=== PATIENT | male | born 1995 | race Hispanic/Latino ===

== ENCOUNTER 2016-11-09 04:28 | Emergency (ER) | payer OTHER ==
[2016-11-09 04:32] VITALS: BP 145/81
[2016-11-09] MEDS ORDERED: IBUPOTC PO (15:03)
[2016-11-10] MEDS ORDERED: NORCOTAB PO (11:23)
== END 2016-11-09 05:25 | disposition left against medical advice (07) ==
LOC: M ED 04:28
DX: R10.9 Unspecified abdominal pain (principal); Z53.29 Procedure and treatment not carried out because of patient's decision for other reasons

== ENCOUNTER 2016-11-09 11:29 | Inpatient (IN) | payer OTHER ==
[~2016-11-09] VITALS: Ht 167.6 cm; Wt 83.4 kg
[2016-11-09] MEDS ORDERED: NS 1,000 ML IV ONE (12:00)
[2016-11-09] MEDS ORDERED: ONDANSETRON 4MG/2ML VIAL (J2405) IV ONE (12:00)
[2016-11-09] MEDS ORDERED: PANTOPRAZOLE 40MG INJ (PROTONIX) (C9113) IV ONE (12:00)
[2016-11-09] MEDS: MORPHINE 2 MG/ML 1ML SYRINGE IV PRN ×2 (12:22→13:35)
[2016-11-09 12:28] LABS: BASO % 0.2 % (0.0-1.0); EOS # 0.3 K/mm3 (0.0-0.50); EOS % 1.3 % (0.0-3.0); LARGE UNSTAINED CELL # 0.1 K/mm3 (0.0-0.4); LARGE UNSTAINED CELL % 0.7 % (0.0-4.0); LYMPH # 1.9 K/mm3 (1.5-6.5); LYMPH % 8.9 % (24.0-44.0); MEAN CORPUSCULAR HEMOGLOBIN 29.4 pg (27.0-33.0); MEAN CORPUSCULAR HGB CONC 34.1 g/dl (32.0-36.5); MEAN CORPUSCULAR VOLUME 86.2 fl (80.0-96.0); MONO # 0.8 K/mm3 (0.0-0.8); NEUTROPHILS # 16.8 K/mm3 (1.8-7.7); NEUTROPHILS % 84.8 % (36.0-66.0); PLATELET COUNT, AUTOMATED 421 k/mm3 (150-450); RED CELL DISTRIBUTION WIDTH 12.4 % (11.5-14.5); WHITE BLOOD COUNT 19.8 K/mm3 (4.0-10.0)
[2016-11-09 12:57] LABS: ALBUMIN 4.4 GM/DL (3.2-5.2); ALBUMIN/GLOBULIN RATIO 1.05 (1.00-1.93); ALKALINE PHOSPHATASE 106 U/L (45-117); ALT/SGPT 54 U/L (12-78); ANION GAP 10 MEQ/L (8-16); AST/SGOT 18 U/L (15-37); BILIRUBIN,DIRECT 0.1 MG/DL (0.0-0.2); BILIRUBIN,TOTAL 0.5 MG/DL (0.2-1.0); BLOOD UREA NITROGEN 10 MG/DL (7-18); CALCIUM LEVEL 9.5 MG/DL (8.5-10.1); CARBON DIOXIDE LEVEL 27 MEQ/L (21-32); CHLORIDE LEVEL 103 MEQ/L (98-107); CREATININE FOR GFR 0.94 MG/DL (0.70-1.30); GLUCOSE, FASTING 119 MG/DL (70-105); POTASSIUM SERUM 3.9 MEQ/L (3.5-5.1); SODIUM LEVEL 140 MEQ/L (136-145); TOTAL PROTEIN 8.6 GM/DL (6.4-8.2)
[2016-11-09] MEDS ORDERED: ISOVUE-370 76% 100ML VIAL (Q9967) As Ordered ONE (12:59)
[2016-11-09] MEDS ORDERED: METOCLOPRAMIDE INJ 10MG/2ML VIAL (J2765) IV ONE (13:15)
--- NOTE | 2016-11-09 13:40 | REP ---
CT ABDOMEN/PELVIS WITH IV BUT WITHOUT ORAL CONTRAST: HISTORY: Abdominal and epigastric pain. No comparison imaging. CT CONTRAST DOSE: 100 mL of Isovue-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 The lung bases are clear. There is no evidence of pleural effusion or upper abdominal ascites. The liver and the spleen are normal in size and homogeneous in texture. No adrenal lesion is seen. Pancreas is unremarkable. There is mural thickening and enhancement in the gallbladder diffusely with slight pericholecystic fluid. This suggests cholecystitis. There is mild fatty infiltration of the liver with an area of fat sparing near the gallbladder. No adrenal or renal abnormality is seen. No retroperitoneal mass or adenopathy. A normal appendix is seen. Small and large intestinal bowel loops are normal in the abdomen and pelvis. The urinary bladder, prostate, and seminal vesicles are unremarkable. No abdominal wall defect is seen. There is a bilateral L5 spondylolysis with a subtle grade 1, 2 mm L5-S1 spondylolisthesis. No other bony destructive lesion is seen. IMPRESSION: 1. Gallbladder wall thickening and enhancement with pericholecystic fluid, question cholecystitis. 2. Normal appendix. 3. Bilateral L5 spondylolysis and grade 1, 2 mm L5-S1 spondylolisthesis. Signed by Juan Carlos Fink MD 11/09/2016 04:42 P
[2016-11-09] MEDS ORDERED: metroNIDAZOLE 500 MG in APPROPRIATE DILUENT 1 EA IV ONE (13:45)
[2016-11-09] MEDS ORDERED: AMPICILLIN SOD/SULBACTAM SOD 3 GM in D5W MINI-BAG PLUS 100 ML IV ONE (13:45)
[2016-11-09] MEDS ORDERED: BUPIVACAINE HCL 0.25% 30 ML VIAL As Ordered ONE (15:02)
[2016-11-09] MEDS ORDERED: LIDOCAINE 1% SDV INJ 30 ML VIAL As Ordered ONE (15:02)
[2016-11-09] MEDS ORDERED: IBUPOTC PO (15:03)
--- NOTE | 2016-11-09 15:31 | HPEPDOC ---
General Surgery H&P Date of Admission History and Physical CHIEF COMPLAINT: Epigastric and right upper quadrant pain HISTORY OF PRESENT ILLNESS: Healthy 21-year-old male woke up about 2 AM this morning sudden onset severe epigastric pain and discomfort associated with nausea and vomiting. He was previously well prior to this attack. Patient reports mild episodes previously that would go away on its own after a couple hours. This did not go away but worsened and became more constant throughout the morning. This prompted him to go to the emergency room. ALLERGIES: Please see below. HOME MEDICATIONS: Please see below. PAST MEDICAL HISTORY: None PAST SURGICAL HISTORY: None PERSONAL/SOCIAL HISTORY: Smokes 2 cigarettes daily, occasional alcohol use. REVIEW OF SYSTEMS: GENERAL: Denies chills, fatigue, fever, weight gain and weight loss. HEENT: Denies blurred vision and double vision. Denies ear symptoms. Denies hoarseness. NECK: Denies any neck pain. CARDIOVASCULAR: Denies chest pain and palpitations. MUSCULOSKELETAL: Denies arthralgias, back pain and thrombophlebitis. SKIN: Denies rash. NEUROLOGIC: Denies headache, stroke and transient ischemic attack. PSYCHIATRIC: Denies anxiety and depression. ENDOCRINE: Denies thyroid disease. HEMATOLOGY/ONCOLOGY: Denies any bleeding or clotting disorder. HEART: Denies any chest pains, palpitations, paroxysmal dyspnea, orthopnea. PULMONARY: Denies chronic cough, dyspnea and wheezing. GASTROINTESTINAL: See HPI. GENITOURINARY: Denies dysuria, frequency, hematuria and nocturia. ENDOCRINE: Denies polydipsia, polyphagia, polyuria, heat or cold intolerance. INFECTIOUS: Denies any recent upper respiratory tract infection, UTI, need for use of antibiotics. NUTRITION: Reports good appetite. PHYSICAL EXAMINATION: VITAL SIGNS: Please see below. GENERAL APPEARANCE: [Patient seen at bedside, appears appears uncomfortable laying on bed, skin is warm and dry HEENT: Normocephalic, atraumatic. [place] palpebral conjunctivae. Anicteric sclerae. Lips moist. CHEST: No chest wall abnormalities. Normal respiratory motion/effort. NECK: Supple. No thyromegaly. No lymphadenopathies. LUNGS: Lung sounds are clear to auscultation bilaterally. No wheezing appreciated. HEART: No chest wall abnormalities. Heart rate and rhythm are regular with no murmurs. ABDOMEN: Abdomen is mildly distended, soft, mildly rounded, no surgical scars, no umbilical or groin herniation. Tender to palpation over right upper quadrant and epigastric area with guarding. Positive for Avendano sign.. SKIN: Warm and dry. EXTREMITIES: Extremities have no deformities. No edema identified. NEUROLOGICAL: Awake alert and oriented. ANCILLARIES: LABORATORY DATA: Please see below. MICROBIOLOGY: Please see below. IMAGING: IMPRESSION AND PLAN: Acute cholecystitis Patient is noticeably uncomfortable. He has a very inflamed gallbladder wall on CT scan of the abdomen and pelvis. His white cell count is also elevated at 19, 000 though his LFTs remained normal. I Advised him for need for surgery. We'll bring him to the operating room for planned laparoscopic cholecystectomy. I discussed with him the details of the procedure, its risks and benefits including risks for bile duct injury, bile leakage, need to convert to open surgery, injury to nearby structures including bowels. Patient has consented to the procedure. He'll be receiving Unasyn and metronidazole perioperatively. Vital Signs Vital Signs Date Time Temp Pulse Resp B/P (MAP) Pulse Ox O2 Delivery O2 Flow Rate FiO2 11/09/16 14:50 16 11/09/16 14:50 99.0 80 118/72 (87) 99 11/09/16 11:30 Room Air Laboratory Data Labs 24H Laboratory Tests 2 11/09/16 12:09: White Blood Count 19.8H, Red Blood Count 5.10, Hemoglobin 15.0, Hematocrit 43.9 , Mean Corpuscular Volume 86.2, Mean Corpuscular Hemoglobin 29.4, Mean Corpuscular Hemoglobin Concent 34.1, Red Cell Distribution Width 12.4, Platelet Count 421, Neutrophils (%) (Auto) 84.8H, Lymphocytes (%) (Auto) 8.9L, Monocytes (%) (Auto) 4.0, Eosinophils (%) (Auto) 1.3, Basophils (%) (Auto) 0.2, Neutrophils # (Auto) 16.8H, Lymphocytes # (Auto) 1.9, Monocytes # (Auto) 0.8, Eosinophils # (Auto) 0.3, Basophils # (Auto) 0.0, Large Unclassified Cells % 0.7 , Large Unclassified Cells # 0.1, Urine Appearance CLEAR, Urine Color YELLOW, Urine pH 6.0, Urine Specific [place] 1.014, Urine Protein NEGATIVE, Urine Glucose (UA) NEGATIVE, Urine Ketones NEGATIVE, Urine Urobilinogen 0.2, Urine Bilirubin NEGATIVE, Urine Leukocyte Esterase NEGATIVE, Urine Blood NEGATIVE, Urine Nitrite NEGATIVE, Urine WBC (Auto) 0, Urine RBC (Auto) 1, Urine Hyaline Casts (Auto) 0, Urine Bacteria (Auto) NEGATIVE, Urine Squamous Epithelial Cells 0, Urine Mucus (Auto) SMALL, Urine Sperm (Auto) , Anion Gap 10, Calcium Level 9.5, Aspartate Amino Transf (AST/SGOT) 18, Alanine Aminotransferase (ALT/SGPT) 54, Alkaline Phosphatase 106, Total Bilirubin 0.5, Direct Bilirubin 0.1, Total Protein 8.6H, Albumin 4.4, Albumin/Globulin Ratio 1.05, Lipase 132 CBC/BMP Laboratory Tests 11/09/16 12:09 Red Blood Count 5.10, Mean Corpuscular Volume 86.2, Mean Corpuscular Hemoglobin 29.4, Mean Corpuscular Hemoglobin Concent 34.1, Red Cell Distribution Width 12.4 , Neutrophils (%) (Auto) 84.8 H, Lymphocytes (%) (Auto) 8.9 L, Monocytes (%) ( Auto) 4.0, Eosinophils (%) (Auto) 1.3, Basophils (%) (Auto) 0.2, Neutrophils # ( Auto) 16.8 H, Lymphocytes # (Auto) 1.9, Monocytes # (Auto) 0.8, Eosinophils # ( Auto) 0.3, Basophils # (Auto) 0.0 Home Medications Scheduled PRN Acetaminophen/Hydrocodone ([place], Anexsia 5/325) 1 Tab Tab, 1-2 TAB PO Q4HP PRN for MILD/MODERATE PAIN (PS 1-7) Ibuprofen (Ibuprofen) 200 Mg Tab, 800 MG PO QID PRN for PAIN, (Reported) Allergies Coded Allergies: No Known Allergies (Unverified , 11/09/16) BAM RODRIGUEZ MD Nov 09, 2016 15:31
[2016-11-09] MEDS ORDERED: ACETAMINOPHEN 325 MG TAB PO ONE (17:15)
[2016-11-09] MEDS: LR 1,000 ML IV SCH (17:30)
[2016-11-09 17:43] VITALS: BP 145/70
[2016-11-09 18:30] VITALS: BP 137/86
[2016-11-09] MEDS ORDERED: fentaNYL 250 MCG/5 ML INJECTION (J3010) As Ordered ONE (18:53)
[2016-11-09] MEDS ORDERED: ROCURONIUM BROMIDE 50 MG/5 ML VIAL/SYRINGE As Ordered ONE (18:53)
[2016-11-09] MEDS ORDERED: PROPOFOL 200 MG/20 ML VIAL As Ordered ONE (18:53)
[2016-11-09] MEDS ORDERED: LIDOCAINE 2% INJ 100 MG/5 ML SDV (FOR ANES.) As Ordered ONE (18:53)
[2016-11-09] MEDS ORDERED: MIDAZOLAM INJ 2 MG/2 ML VIAL (J2250) As Ordered ONE (18:54)
[2016-11-09] MEDS ORDERED: ONDANSETRON 4MG/2ML VIAL (J2405) As Ordered ONE (19:31)
[2016-11-09] MEDS ORDERED: GLYCOPYRROLATE INJ 0.2 MG/ML 2 ML VIAL As Ordered ONE (19:31)
[2016-11-09] MEDS ORDERED: NEOSTIGMINE 1MG/ML 5 ML SYRINGE (J2710) As Ordered ONE (19:31)
[2016-11-09] MEDS ORDERED: KETOROLAC 60 MG/2 ML VIAL (J1885) As Ordered ONE (19:31)
[2016-11-09] MEDS ORDERED: MORPHINE 10 MG/ML 1ML VIAL IV PRN (21:00)
[2016-11-09] MEDS ORDERED: NORCO, ANEXSIA 5/325MG TABLET (HYDROcodone/ACETAMINOPHEN) PO PRN ×2 (21:00)
[2016-11-09] MEDS ORDERED: MEPERIDINE INJ 25 MG/ML VIAL (J2175) IV PRN (21:15)
[2016-11-09] MEDS ORDERED: ONDANSETRON 4MG/2ML VIAL (J2405) IV PRN (21:15)
[2016-11-09] MEDS ORDERED: fentaNYL 100 MCG/2 ML INJECTION (J3010) IV PRN (21:15)
[2016-11-09] MEDS ORDERED: PERCOCET 5MG/325MG TAB PO PRN (21:15)
[2016-11-09] MEDS ORDERED: KETOROLAC 30 MG/ML VIAL (J1885) IV PRN (21:15)
[2016-11-09] MEDS ORDERED: LR 1,000 ML IV SCH (21:15)
[2016-11-09 21:40] VITALS: BP 117/55
[2016-11-09 22:10] VITALS: BP 111/56
[2016-11-09] MEDS: AMPICILLIN SOD/SULBACTAM SOD 3 GM in D5W MINI-BAG PLUS 100 ML IV SCH (22:16)
[2016-11-09 22:40] VITALS: BP 110/56
[2016-11-09] MEDS: metroNIDAZOLE 500 MG in APPROPRIATE DILUENT 1 EA IV SCH (23:09)
[2016-11-09 23:40] VITALS: BP 115/62
[2016-11-10 00:40] VITALS: BP 116/56
[2016-11-10 01:45] VITALS: BP 102/70
[2016-11-10] MEDS: AMPICILLIN SOD/SULBACTAM SOD 3 GM in D5W MINI-BAG PLUS 100 ML IV SCH ×2 (02:10→09:41)
[2016-11-10] MEDS: LR 1,000 ML IV SCH ×2 (02:10→13:30)
[2016-11-10 03:10] VITALS: BP 112/59
[2016-11-10] MEDS: metroNIDAZOLE 500 MG in APPROPRIATE DILUENT 1 EA IV SCH ×2 (05:41→14:00)
[2016-11-10 06:00] VITALS: BP 121/58
[2016-11-10 06:38] LABS: BASO % 0.5 % (0.0-1.0); EOS # 0.2 K/mm3 (0.0-0.50); EOS % 1.6 % (0.0-3.0); LARGE UNSTAINED CELL # 0.2 K/mm3 (0.0-0.4); LARGE UNSTAINED CELL % 2.1 % (0.0-4.0); LYMPH % 20.9 % (24.0-44.0); MEAN CORPUSCULAR HEMOGLOBIN 29.2 pg (27.0-33.0); MEAN CORPUSCULAR HGB CONC 33.6 g/dl (32.0-36.5); MEAN CORPUSCULAR VOLUME 86.8 fl (80.0-96.0); MONO # 0.9 K/mm3 (0.0-0.8); MONO % 9.1 % (0.0-5.0); NEUTROPHILS # 6.3 K/mm3 (1.8-7.7); NEUTROPHILS % 65.8 % (36.0-66.0); PLATELET COUNT, AUTOMATED 334 k/mm3 (150-450); RED CELL DISTRIBUTION WIDTH 12.2 % (11.5-14.5); WHITE BLOOD COUNT 9.6 K/mm3 (4.0-10.0)
[2016-11-10 06:45] LABS: ALBUMIN 3.2 GM/DL (3.2-5.2); ALBUMIN/GLOBULIN RATIO 0.91 (1.00-1.93); ALKALINE PHOSPHATASE 82 U/L (45-117); ALT/SGPT 43 U/L (12-78); ANION GAP 7 MEQ/L (8-16); AST/SGOT 21 U/L (15-37); BLOOD UREA NITROGEN 9 MG/DL (7-18); CALCIUM LEVEL 8.5 MG/DL (8.5-10.1); CARBON DIOXIDE LEVEL 29 MEQ/L (21-32); CHLORIDE LEVEL 105 MEQ/L (98-107); CREATININE FOR GFR 0.91 MG/DL (0.70-1.30); GLUCOSE, FASTING 103 MG/DL (70-105); POTASSIUM SERUM 3.9 MEQ/L (3.5-5.1); SODIUM LEVEL 141 MEQ/L (136-145); TOTAL PROTEIN 6.7 GM/DL (6.4-8.2)
[2016-11-10 10:00] VITALS: BP 125/58
[2016-11-10] MEDS ORDERED: NORCOTAB PO (11:23)
--- NOTE | 2016-12-04 14:27 | ROOPDOC ---
[facility] Report Of Operation Report of Operation DATE OF PROCEDURE: 11/09/2016 PREPROCEDURE DIAGNOSES: acute cholecystitis. POSTPROCEDURE DIAGNOSES: acute cholecystitis. PROCEDURE: laparoscopic cholecystectomy. SURGEON: Gagan Rodriguez MD [employer]OWER[employer] REPAIRER: Nikita Yo MD ANESTHESIA: Gen. anesthesia. ESTIMATED BLOOD LOSS: Approximately 20-30 mL's COMPLICATIONS: none. REMARKS: acutely inflamed, thickened gallbladder with some chronic fibrotic thickening of the gallbladder wall. PROCEDURE NOTE: [id number] male who presented with one-day history of exquisite epigastric and right upper quadrant pain, lleukocytosis of 20,000, and appearance of a markedly inflamed gallbladder wall on CT of the abdomen and pelvis DESCRIPTION OF PROCEDURE: Patient was given a dose Unasyn 3 g IV M metronidazole 500 mg IV preoperatively for treatment of his acute cholecystitis. He was brought to the operating room, laid supine on the table, compression boots placed for DVT prophylaxis. General endotracheal anesthesia started. His abdomen then prepped and draped in usual sterile fashion. Surgical timeout was performed prior to starting surgery. Entry into the abdomen done through an incision above the umbilicus. A Veress needle was inserted with a controlled fashion. CO2 insufflation started to pressure 15 mmHg. Using the same incision a 5 mm Visiport was placed under direct vision laparoscope. The area underneath the insertion site was inspected and no injury found. He was then placed in steep reverse Trendelenburg. His right side was tilted up to further expose the gallbladder. Under direct vision a 11 mm epigastric port and 2 5 mm working ports placed along the right subcostal line. On diagnostic laparoscopy, the gallbladder started to be markedly, acutely inflamed and appears fibrotic and probably chronically thickened with the gallbladder wall and investing peritoneum showing a very thick, fibrotic rind. This was markedly distended. A hole in the fundus of the gallbladder was created with a Bovie cautery and the suction device placed to empty out the gallbladder to allow for manipulation of the gallbladder. Clear hydropic bile fluid was suctioned off. The fundus of the gallbladder was grasped and the gallbladder was elevated superiorly exposing the neck of the gallbladder. The peritoneum overlying the area was opened up and dissected free both anteriorly and posteriorly to help with retraction of the gallbladder. The hepatocystic triangle was approached and dissected using a [place] instrument. The cystic duct was identified coming off from the neck of the gallbladder and this was circumferentially dissected. The cystic artery was identified in its usual position medially behind a small lymph node of [place]. This was similarly circumferentially dissected off surrounding adipose tissue. We continued posterior dissection proximally at the next gallbladder until a critical view of safety was achieved whereby only the previously identified duct and artery coursing through the neck the gallbladder. At this point the cystic artery was clipped 4 times and divided. After again checking his anatomy and verifying that the previously identified cystic duct, this was also clipped 4 times and divided. The rest of the gallbladder was then dissected free of the gallbladder bed using Bovie cautery. There was minimal bleeding at the lateral gallbladder attachments to the liver capsule this was easily controlled with Bovie cautery. The gallbladder was then placed in an Endo Catch bag and retrieved outside through the epigastric port site. On re- insufflation, I inspected the clips and noted this to be in place. No further bleeding noted. No bile leakage noted. The abdomen was insufflated all ports were removed. The epigastric fascial defect repaired with 0 Vicryl in a mattress fashion. Rest of the skin incisions closed with 4-0 Monocryl in subcuticular fashion. Steri-Strips and gauze dressings were placed, the wound. Patient was informed they awakened, extubated and brought to recovery room stable GAGAN RODRIGUEZ MD Dec 04, 2016 14:27
--- NOTE | 2016-12-04 15:30 | DS.PDOC ---
Discharge Summary General Date of Admission Nov 09, 2016 at 15:00 Date of Discharge 11/10/2016 Attending Physician: BAM RODRIGUEZ MD Discharge Summary PROCEDURES PERFORMED DURING STAY: laparoscopic cholecystectomy. ADMITTING DIAGNOSES: 1. Acute cholecystitis DISCHARGE DIAGNOSES: 1. Acute cholecystitis COMPLICATIONS/CHIEF COMPLAINT: Acute Cholecystitis. HISTORY OF PRESENT ILLNESS: See HPI HOSPITAL COURSE: patient was seen in the emergency room for severe epigastric and right upper quadrant pain. He is found to have leukocytosis of 20,000.. He had marked gallbladder wall thickening on CT and ultrasound. He was started on IV Unasyn and metronidazole. He was brought to the operating room for laparoscopic cholecystectomy. He was found to have as expected acute cholecystitis and probably a component of chronic cholecystitis. He did well perioperatively. He was started on clear liquids. By the following morning his labs shows his leukocytosis has resolved. His white cell count is down to 9000.. His LFTs are normal. He was advanced to regular food which he tolerated. He was quite comfortable and was not requiring much pain medications. He was subsequently discharged home greatly improved.. DISCHARGE MEDICATIONS: Please see below. ALLERGIES: Please see below. PHYSICAL EXAMINATION ON DISCHARGE: VITAL SIGNS: Please see below. GENERAL: comfortable HEENT: anicteric sclerae, lips are moist NECK: supple, no lymphadenopathy CARDIOVASCULAR EXAMINATION: regular heart rate and rhythm RESPIRATORY EXAMINATION: clear breath sounds bilaterally ABDOMINAL EXAMINATION: flat, soft, nondistended.. Port sites are clean, dry, intact. Nontender over the right upper quadrant area EXTREMITIES: no edema SKIN: warm and moist NEUROLOGICAL EXAMINATION: awake, alert, oriented PSYCHIATRIC EXAMINATION: normal mood and affect LABORATORY DATA: Please see below. IMAGING: CT abdomen and pelvis, right upper quadrant ultrasound PROGNOSIS: good ACTIVITY: light activity Is 2 weeks. DIET: regular diet as tolerated. DISCHARGE PLAN: discharged to home. Follow-up in 2 weeks in my clinic DISPOSITION: Home, Self-Care. DISCHARGE INSTRUCTIONS: 1. Patient may shower. Pat incisions dry 2. Keep Steri-Strips for 1 week. DISCHARGE CONDITION: improved TIME SPENT ON DISCHARGE: Greater than 30 minutes. Discharge Medications Scheduled PRN Acetaminophen/Hydrocodone ([place], Anexsia 5/325) 1 Tab Tab, 1-2 TAB PO Q4HP PRN for MILD/MODERATE PAIN (PS 1-7) Ibuprofen (Ibuprofen) 200 Mg Tab, 800 MG PO QID PRN for PAIN, (Reported) Allergies Coded Allergies: No Known Allergies (Unverified , 11/09/16) BAM RODRIGUEZ MD Dec 04, 2016 15:30
== END 2016-11-10 14:10 | disposition home or self-care (01) | DRG 419 ==
LOC: M ED 11:29 → M ED INP 15:00 → M MSPAV 17:43
PROVIDERS: ADMIT Surgery; ATTEND Surgery
PROC: 0FT44ZZ Resection of Gallbladder, Percutaneous Endoscopic Approach (ICD-10-PCS; principal; 2016-11-09 14:26)
DX: K81.0 Acute cholecystitis (principal)